=== PATIENT | male | born 1995 | race Caucasian/White ===

== ENCOUNTER 2017-12-06 10:32 | Inpatient (IN) | payer OTHER ==
[2017-12-06] MEDS: morphine 4 MG/ML VIAL IV (11:18)
[2017-12-06] MEDS: KETOROLAC 15 MG INJ IV (11:20)
[2017-12-06 11:41] LABS: ADD MAN DIFF? NO
[2017-12-06 11:44] LABS: BASOPHIL # 0.1 10^3/ul (0.0-0.1); BASOPHILS % 0.5 % (0.0-2.0); EOSINOPHILS % 0.2 % (0.0-7.0); HEMATOCRIT 43.9 % (42.0-52.0); HEMOGLOBIN 15.4 g/dl (14.0-18.0); LYMPHOCYTES # 1.7 10^3/ul (0.8-2.9); LYMPHOCYTES % 16.7 % (15.0-51.0); MEAN CORPUSCULAR HEMOGLOBIN 30.7 pg (29.0-33.0); MEAN CORPUSCULAR HGB CONC 35.1 g/dl (32.0-37.0); MEAN CORPUSCULAR VOLUME 87.5 fl (82.0-101.0); MEAN PLATELET VOLUME 10.1 fl (7.4-10.4); MONOCYTE # 0.6 10^3/ul (0.3-0.9); MONOCYTES % 6.2 % (0.0-11.0); NEUTROPHIL # 7.8 10^3/ul (1.6-7.5); PLATELET COUNT 191 10^3/UL (140-415); RED BLOOD COUNT 5.02 10^6/ul (4.70-6.10); RED CELL DISTRIBUTION WIDTH 12.2 % (11.5-14.5)
[2017-12-06 11:44] LABS: WHITE BLOOD COUNT 10.3 10^3/ul (4.8-10.8)
[2017-12-06 12:18] LABS: ALANINE AMINOTRANSFERASE 15 IU/L (13-69); ALBUMIN 4.5 g/dl (3.3-4.9); ALBUMIN/GLOBULIN RATIO 1.36; ALKALINE PHOSPHATASE 43 IU/L (42-121); ANION GAP 16 (8-16); ASPARTATE AMINO TRANSFERASE 15 IU/L (15-46); BILIRUBIN,INDIRECT 1.5 mg/dl (0-1.1); BILIRUBIN,TOTAL 1.5 mg/dl (0.2-1.3); BLOOD UREA NITROGEN 16 mg/dl (7-20); CALCIUM 9.4 mg/dl (8.4-10.2); CARBON DIOXIDE 30 mmol/L (21-31); CHLORIDE 100 mmol/L (97-110); CREATININE 0.92 mg/dl (0.61-1.24); GLUCOSE 106 mg/dl (70-220); LIPASE 29 U/L (23-300); POTASSIUM 4.2 mmol/L (3.5-5.1); SODIUM 142 mmol/L (135-144); TOTAL PROTEIN 7.8 g/dl (6.1-8.1)
[2017-12-06 12:48] LABS: ERYTHROCYTE SEDIMENTATION RATE 19 mm/Hr (0-15)
[2017-12-06] MEDS: HYDROmorphONE 2 MG/ML SYG IM (14:11)
[2017-12-06] MEDS: SOD CHLORIDE 0.9% 1,000 ML IV ×2 (14:44→18:44)
[2017-12-06] MEDS: ONDANSETRON 4 MG INJ IV (14:44)
[2017-12-06] MEDS ORDERED: ACETAMINOPHEN 325 MG TAB PO ×2 (15:00→18:30)
[2017-12-06] MEDS ORDERED: ONDANSETRON 4 MG INJ IV ×2 (15:00→18:30)
[2017-12-06] MEDS ORDERED: NACL 0.9% 3 ML SYG IV (18:30)
[2017-12-06] MEDS ORDERED: DOCUSATE SODIUM 100 MG CAP PO (18:30)
[2017-12-06] MEDS ORDERED: MAGNESIUM HYDROXIDE 30ML CUP PO (18:30)
[2017-12-06] MEDS ORDERED: HYDROCODONE/APAP (5/325) TAB PO (18:30)
[2017-12-06] MEDS ORDERED: ZOLPIDEM 5 MG TAB PO (18:30)
[2017-12-06] MEDS: morphine 2 MG INJ IV ×2 (18:44→22:29)
[2017-12-07] MEDS: morphine 2 MG INJ IV ×2 (01:25→05:07)
[2017-12-07] MEDS: SOD CHLORIDE 0.9% 1,000 ML IV (03:50)
[2017-12-07 06:00] LABS: ADD MAN DIFF? NO
[2017-12-07 06:16] LABS: BASOPHIL # 0.1 10^3/ul (0.0-0.1); BASOPHILS % 0.7 % (0.0-2.0); EOSINOPHILS # 0.1 10^3/ul (0.0-0.5); EOSINOPHILS % 1.1 % (0.0-7.0); HEMATOCRIT 38.2 % (42.0-52.0); HEMOGLOBIN 13.4 g/dl (14.0-18.0); LYMPHOCYTES # 1.8 10^3/ul (0.8-2.9); LYMPHOCYTES % 20.6 % (15.0-51.0); MEAN CORPUSCULAR HGB CONC 35.1 g/dl (32.0-37.0); MEAN CORPUSCULAR VOLUME 88.4 fl (82.0-101.0); MEAN PLATELET VOLUME 10.3 fl (7.4-10.4); MONOCYTE # 0.6 10^3/ul (0.3-0.9); MONOCYTES % 6.8 % (0.0-11.0); NEUTROPHIL # 6.2 10^3/ul (1.6-7.5); NEUTROPHILS % 70.5 % (39.0-77.0); PLATELET COUNT 167 10^3/UL (140-415); RED BLOOD COUNT 4.32 10^6/ul (4.70-6.10); RED CELL DISTRIBUTION WIDTH 12.1 % (11.5-14.5)
[2017-12-07 06:16] LABS: WHITE BLOOD COUNT 8.7 10^3/ul (4.8-10.8)
[2017-12-07 06:43] LABS: ALANINE AMINOTRANSFERASE 20 IU/L (13-69); ALBUMIN 3.2 g/dl (3.3-4.9); ALBUMIN/GLOBULIN RATIO 1.23; ALKALINE PHOSPHATASE 35 IU/L (42-121); ANION GAP 13 (8-16); ASPARTATE AMINO TRANSFERASE 13 IU/L (15-46); BILIRUBIN,INDIRECT 0.5 mg/dl (0-1.1); BILIRUBIN,TOTAL 0.5 mg/dl (0.2-1.3); BLOOD UREA NITROGEN 13 mg/dl (7-20); CALCIUM 8.4 mg/dl (8.4-10.2); CARBON DIOXIDE 27 mmol/L (21-31); CHLORIDE 109 mmol/L (97-110); CREATININE 0.78 mg/dl (0.61-1.24); GLUCOSE 90 mg/dl (70-220); MAGNESIUM 1.9 mg/dl (1.7-2.5); PHOSPHORUS 3.3 mg/dl (2.5-4.9); POTASSIUM 4.1 mmol/L (3.5-5.1); SODIUM 145 mmol/L (135-144); TOTAL PROTEIN 5.8 g/dl (6.1-8.1)
[2017-12-07] MEDS ORDERED: ENOXAPARIN 40 MG/0.4 ML SYG SC (09:00)
[2017-12-07 09:03] LABS: HEMOGLOBIN A1C 4.8 % (0-5.9)
[2017-12-07] MEDS: HYDROmorphONE 0.5 MG/0.5 ML SYG IV (09:36)
[2017-12-07] MEDS: morphine LIQ (10 MG/5 ML) CUP PO ×2 (15:32→19:41)
[2017-12-08] MEDS: morphine LIQ (10 MG/5 ML) CUP PO ×2 (01:25→07:54)
[2017-12-08] MEDS ORDERED: morphine LIQ (10 MG/5 ML) CUP PO (17:30)
== END 2017-12-08 13:41 | disposition home or self-care (01) | DRG 392 ==
LOC: E/R 10:32 → PP2 14:53
DX: R10.84 Generalized abdominal pain (principal); M04.1 Periodic fever syndromes; E86.0 Dehydration; E80.6 Other disorders of bilirubin metabolism; F17.200 Nicotine dependence, unspecified, uncomplicated
CPT/HCPCS: 36415; 74018; 80053; 83036; 83690; 83735; 84100; 85025; 85651; 86140; 93005; 96372; 96374; 96375; 99285-25

== ENCOUNTER 2018-02-11 13:17 | Emergency (ER) | payer OTHER ==
[2018-02-11] MEDS: morphine 4 MG/ML VIAL IV (14:46)
[2018-02-11] MEDS: SOD CHLORIDE 0.9% 1,000 ML IV (14:46)
[2018-02-11] MEDS: ONDANSETRON 4 MG INJ IV (14:46)
[2018-02-11 15:11] LABS: ADD MAN DIFF? NO
[2018-02-11 15:13] LABS: WHITE BLOOD COUNT 5.5 10^3/ul (4.8-10.8)
[2018-02-11 15:13] LABS: BASOPHIL # 0.1 10^3/ul (0.0-0.1); BASOPHILS % 1.3 % (0.0-2.0); EOSINOPHILS % 0.7 % (0.0-7.0); HEMATOCRIT 44.6 % (42.0-52.0); HEMOGLOBIN 15.8 g/dl (14.0-18.0); LYMPHOCYTES # 1.6 10^3/ul (0.8-2.9); LYMPHOCYTES % 29.5 % (15.0-51.0); MEAN CORPUSCULAR HEMOGLOBIN 31.3 pg (29.0-33.0); MEAN CORPUSCULAR HGB CONC 35.4 g/dl (32.0-37.0); MEAN CORPUSCULAR VOLUME 88.3 fl (82.0-101.0); MEAN PLATELET VOLUME 9.6 fl (7.4-10.4); MONOCYTE # 0.4 10^3/ul (0.3-0.9); MONOCYTES % 6.5 % (0.0-11.0); NEUTROPHIL # 3.4 10^3/ul (1.6-7.5); NEUTROPHILS % 61.8 % (39.0-77.0); PLATELET COUNT 183 10^3/UL (140-415); RED BLOOD COUNT 5.05 10^6/ul (4.70-6.10); RED CELL DISTRIBUTION WIDTH 12.2 % (11.5-14.5)
[2018-02-11 15:44] LABS: ALANINE AMINOTRANSFERASE 15 IU/L (13-69); ALBUMIN 4.3 g/dl (3.3-4.9); ALBUMIN/GLOBULIN RATIO 1.53; ALKALINE PHOSPHATASE 28 IU/L (42-121); ANION GAP 11 (8-16); ASPARTATE AMINO TRANSFERASE 14 IU/L (15-46); BILIRUBIN,INDIRECT 0.7 mg/dl (0-1.1); BILIRUBIN,TOTAL 0.7 mg/dl (0.2-1.3); BLOOD UREA NITROGEN 16 mg/dl (7-20); CALCIUM 9.7 mg/dl (8.4-10.2); CARBON DIOXIDE 29 mmol/L (21-31); CHLORIDE 105 mmol/L (97-110); CREATININE 0.93 mg/dl (0.61-1.24); GLUCOSE 96 mg/dl (70-220); LIPASE 40 U/L (23-300); POTASSIUM 4.4 mmol/L (3.5-5.1); SODIUM 141 mmol/L (135-144); TOTAL PROTEIN 7.1 g/dl (6.1-8.1)
[2018-02-11 15:45] LABS: C-REACTIVE PROTEIN < 0.5 mg/dl (0.0-0.9)
[2018-02-11 16:29] LABS: ERYTHROCYTE SEDIMENTATION RATE 1 mm/Hr (0-15)
[2018-02-11 17:30] LABS: ADD UMIC NO; UR ASCORBIC ACID NEGATIVE (NEGATIVE); UR BILIRUBIN (Dip) NEGATIVE (NEGATIVE); UR BLOOD (Dip) NEGATIVE (NEGATIVE); UR CLARITY CLEAR (CLEAR); UR COLOR YELLOW (YELLOW); UR GLUCOSE (Dip) NEGATIVE (NEGATIVE); UR KETONES (Dip) NEGATIVE (NEGATIVE); UR LEUKOCYTE ESTERASE (Dip) NEGATIVE Leu/ul (NEGATIVE); UR NITRITE (Dip) NEGATIVE (NEGATIVE); UR SPECIFIC GRAVITY (Dip) 1.024 (1.003-1.030); UR TOTAL PROTEIN (Dip) NEGATIVE (NEGATIVE); UR UROBILINOGEN (Dip) NEGATIVE (NEGATIVE)
== END 2018-02-11 18:03 | disposition home or self-care (01) ==
LOC: FTE 13:17
DX: R10.9 Unspecified abdominal pain (principal); F17.210 Nicotine dependence, cigarettes, uncomplicated
CPT/HCPCS: 36415; 80053; 81003; 83690; 85025; 85651; 86140; 96374; 96375; 99284-25

== ENCOUNTER 2018-02-21 22:34 | Emergency (ER) | payer OTHER ==
[2018-02-21 23:19] LABS: ADD MAN DIFF? NO
[2018-02-21 23:24] LABS: BASOPHIL # 0.1 10^3/ul (0.0-0.1); BASOPHILS % 0.8 % (0.0-2.0); EOSINOPHILS # 0.1 10^3/ul (0.0-0.5); EOSINOPHILS % 1.3 % (0.0-7.0); HEMATOCRIT 43.9 % (42.0-52.0); HEMOGLOBIN 15.6 g/dl (14.0-18.0); IMMATURE GRANS #M 0.02 10^3/ul; IMMATURE GRANS % (M) 0.2 %; LYMPHOCYTES # 1.9 10^3/ul (0.8-2.9); LYMPHOCYTES % 20.7 % (15.0-51.0); MEAN CORPUSCULAR HEMOGLOBIN 30.8 pg (29.0-33.0); MEAN CORPUSCULAR HGB CONC 35.5 g/dl (32.0-37.0); MEAN CORPUSCULAR VOLUME 86.8 fl (82.0-101.0); MEAN PLATELET VOLUME 9.7 fl (7.4-10.4); MONOCYTE # 0.6 10^3/ul (0.3-0.9); MONOCYTES % 6.1 % (0.0-11.0); NEUTROPHIL # 6.5 10^3/ul (1.6-7.5); NEUTROPHILS % 70.9 % (39.0-77.0); PLATELET COUNT 201 10^3/UL (140-415); RED BLOOD COUNT 5.06 10^6/ul (4.70-6.10); RED CELL DISTRIBUTION WIDTH 11.9 % (11.5-14.5)
[2018-02-21 23:24] LABS: WHITE BLOOD COUNT 9.2 10^3/ul (4.8-10.8)
[2018-02-21 23:34] LABS: ADD UMIC NO; UR ASCORBIC ACID NEGATIVE (NEGATIVE); UR BILIRUBIN (Dip) NEGATIVE (NEGATIVE); UR BLOOD (Dip) NEGATIVE (NEGATIVE); UR CLARITY CLEAR (CLEAR); UR COLOR YELLOW (YELLOW); UR GLUCOSE (Dip) NEGATIVE (NEGATIVE); UR KETONES (Dip) NEGATIVE (NEGATIVE); UR LEUKOCYTE ESTERASE (Dip) NEGATIVE Leu/ul (NEGATIVE); UR NITRITE (Dip) NEGATIVE (NEGATIVE); UR SPECIFIC GRAVITY (Dip) 1.021 (1.003-1.030); UR TOTAL PROTEIN (Dip) NEGATIVE (NEGATIVE); UR UROBILINOGEN (Dip) NEGATIVE (NEGATIVE)
[2018-02-21 23:44] LABS: ALANINE AMINOTRANSFERASE 18 IU/L (13-69); ALBUMIN 4.2 g/dl (3.3-4.9); ALBUMIN/GLOBULIN RATIO 1.35; ALKALINE PHOSPHATASE 33 IU/L (42-121); ANION GAP 13 (8-16); ASPARTATE AMINO TRANSFERASE 19 IU/L (15-46); BILIRUBIN,INDIRECT 0.5 mg/dl (0-1.1); BILIRUBIN,TOTAL 0.5 mg/dl (0.2-1.3); BLOOD UREA NITROGEN 14 mg/dl (7-20); CALCIUM 9.3 mg/dl (8.4-10.2); CARBON DIOXIDE 29 mmol/L (21-31); CHLORIDE 105 mmol/L (97-110); CREATININE 0.81 mg/dl (0.61-1.24); GLUCOSE 86 mg/dl (70-220); LIPASE 68 U/L (23-300); SODIUM 143 mmol/L (135-144); TOTAL PROTEIN 7.3 g/dl (6.1-8.1)
[2018-02-21] MEDS: morphine 4 MG/ML VIAL IM (23:56)
== END 2018-02-22 01:12 | disposition home or self-care (01) ==
LOC: FTE 22:34
DX: K59.00 Constipation, unspecified (principal); F17.210 Nicotine dependence, cigarettes, uncomplicated
CPT/HCPCS: 36415; 74176; 80053; 81003; 83690; 85025; 96372; 99285-25

== ENCOUNTER 2018-02-23 08:53 | Inpatient (IN) | payer OTHER ==
[2018-02-23 09:48] LABS: ADD MAN DIFF? NO
[2018-02-23] MEDS: KETOROLAC 30 MG INJ IV ×2 (09:48→10:37)
[2018-02-23] MEDS: SOD CHLORIDE 0.9% 1,000 ML IV ×2 (09:49→13:48)
[2018-02-23 09:54] LABS: WHITE BLOOD COUNT 11.2 10^3/ul (4.8-10.8)
[2018-02-23 09:54] LABS: BASOPHILS % 0.4 % (0.0-2.0); EOSINOPHILS % 0.4 % (0.0-7.0); HEMATOCRIT 40.5 % (42.0-52.0); HEMOGLOBIN 14.4 g/dl (14.0-18.0); IMMATURE GRANS #M 0.04 10^3/ul; IMMATURE GRANS % (M) 0.4 %; LYMPHOCYTES # 1.3 10^3/ul (0.8-2.9); MEAN CORPUSCULAR HEMOGLOBIN 30.3 pg (29.0-33.0); MEAN CORPUSCULAR HGB CONC 35.6 g/dl (32.0-37.0); MEAN CORPUSCULAR VOLUME 85.3 fl (82.0-101.0); MEAN PLATELET VOLUME 9.5 fl (7.4-10.4); MONOCYTE # 0.6 10^3/ul (0.3-0.9); MONOCYTES % 4.9 % (0.0-11.0); NEUTROPHIL # 9.2 10^3/ul (1.6-7.5); NEUTROPHILS % 81.9 % (39.0-77.0); PLATELET COUNT 159 10^3/UL (140-415); RED BLOOD COUNT 4.75 10^6/ul (4.70-6.10); RED CELL DISTRIBUTION WIDTH 12.1 % (11.5-14.5)
[2018-02-23 10:13] LABS: ALANINE AMINOTRANSFERASE 16 IU/L (13-69); ALBUMIN 3.7 g/dl (3.3-4.9); ALBUMIN/GLOBULIN RATIO 1.19; ALKALINE PHOSPHATASE 37 IU/L (42-121); ANION GAP 11 (8-16); ASPARTATE AMINO TRANSFERASE 15 IU/L (15-46); BILIRUBIN,INDIRECT 1.3 mg/dl (0-1.1); BILIRUBIN,TOTAL 1.3 mg/dl (0.2-1.3); BLOOD UREA NITROGEN 12 mg/dl (7-20); CALCIUM 8.8 mg/dl (8.4-10.2); CARBON DIOXIDE 27 mmol/L (21-31); CHLORIDE 104 mmol/L (97-110); CREATININE 0.78 mg/dl (0.61-1.24); GLUCOSE 108 mg/dl (70-220); LIPASE 15 U/L (23-300); SODIUM 138 mmol/L (135-144); TOTAL PROTEIN 6.8 g/dl (6.1-8.1)
[2018-02-23 10:36] LABS: ADD UMIC YES; UR ASCORBIC ACID NEGATIVE (NEGATIVE); UR BILIRUBIN (Dip) NEGATIVE (NEGATIVE); UR BLOOD (Dip) NEGATIVE (NEGATIVE); UR CLARITY CLEAR (CLEAR); UR COLOR YELLOW (YELLOW); UR GLUCOSE (Dip) NEGATIVE (NEGATIVE); UR KETONES (Dip) TRACE mg/dL (NEGATIVE); UR LEUKOCYTE ESTERASE (Dip) NEGATIVE Leu/ul (NEGATIVE); UR MUCUS MANY /HPF (NONE SEEN); UR NITRITE (Dip) NEGATIVE (NEGATIVE); UR RBC 3 /HPF (0-5); UR SPECIFIC GRAVITY (Dip) 1.033 (1.003-1.030); UR TOTAL PROTEIN (Dip) 2+ mg/dl (NEGATIVE); UR UROBILINOGEN (Dip) NEGATIVE (NEGATIVE); UR WBC 4 /HPF (0-5)
[2018-02-23] MEDS ORDERED: ACETAMINOPHEN 325 MG TAB PO ×2 (11:00→13:30)
[2018-02-23] MEDS ORDERED: ONDANSETRON 4 MG INJ IV (11:00)
[2018-02-23] MEDS ORDERED: POTASSIUM CHLORIDE 10 MEQ in SOD CHLORIDE 0.9% 1,000 ML IV (13:00)
[2018-02-23] MEDS ORDERED: NACL 0.9% 3 ML SYG IV (13:30)
[2018-02-23] MEDS ORDERED: BISACODYL 10 MG SUPP PR (13:30)
[2018-02-23] MEDS ORDERED: ACETAMINOPHEN 650 MG SUPP PR (13:30)
[2018-02-23] MEDS: HYDROmorphONE 2 MG/ML SYG IV ×2 (13:46→20:44)
[2018-02-23] MEDS: ONDANSETRON 4 MG INJ IV ×2 (13:46→20:43)
[2018-02-24] MEDS: HYDROmorphONE 2 MG/ML SYG IV ×5 (01:00→20:41)
[2018-02-24] MEDS: ONDANSETRON 4 MG INJ IV ×4 (02:32→18:08)
[2018-02-24 05:48] LABS: ADD MAN DIFF? NO
[2018-02-24 05:58] LABS: BASOPHIL # 0.1 10^3/ul (0.0-0.1); BASOPHILS % 0.6 % (0.0-2.0); EOSINOPHILS # 0.3 10^3/ul (0.0-0.5); EOSINOPHILS % 3.3 % (0.0-7.0); HEMATOCRIT 37.9 % (42.0-52.0); HEMOGLOBIN 13.3 g/dl (14.0-18.0); IMMATURE GRANS #M 0.03 10^3/ul; IMMATURE GRANS % (M) 0.4 %; LYMPHOCYTES # 1.7 10^3/ul (0.8-2.9); LYMPHOCYTES % 21.3 % (15.0-51.0); MEAN CORPUSCULAR HEMOGLOBIN 30.2 pg (29.0-33.0); MEAN CORPUSCULAR HGB CONC 35.1 g/dl (32.0-37.0); MEAN CORPUSCULAR VOLUME 86.1 fl (82.0-101.0); MONOCYTE # 0.5 10^3/ul (0.3-0.9); MONOCYTES % 6.4 % (0.0-11.0); NEUTROPHIL # 5.5 10^3/ul (1.6-7.5); PLATELET COUNT 164 10^3/UL (140-415); RED CELL DISTRIBUTION WIDTH 11.9 % (11.5-14.5)
[2018-02-24 05:58] LABS: WHITE BLOOD COUNT 8.1 10^3/ul (4.8-10.8)
[2018-02-24] MEDS: SOD CHLORIDE 0.9% 1,000 ML IV ×3 (06:01→23:52)
[2018-02-24] MEDS: PANTOPRAZOLE 40 MG INJ IV (06:02)
[2018-02-24 06:34] LABS: ALANINE AMINOTRANSFERASE 20 IU/L (13-69); ALBUMIN 2.9 g/dl (3.3-4.9); ALKALINE PHOSPHATASE 36 IU/L (42-121); ANION GAP 11 (8-16); ASPARTATE AMINO TRANSFERASE 15 IU/L (15-46); BILIRUBIN,INDIRECT 0.6 mg/dl (0-1.1); BILIRUBIN,TOTAL 0.6 mg/dl (0.2-1.3); BLOOD UREA NITROGEN 12 mg/dl (7-20); CALCIUM 8.6 mg/dl (8.4-10.2); CARBON DIOXIDE 27 mmol/L (21-31); CHLORIDE 105 mmol/L (97-110); CHOL/HDL RATIO 2.3 RATIO; CHOLESTEROL 68 mg/dl (100-200); CREATININE 0.81 mg/dl (0.61-1.24); GLUCOSE 86 mg/dl (70-220); HDL CHOLESTEROL 29 mg/dl (30-63); LDL CHOLESTEROL,CALCULATED 27 mg/dl; MAGNESIUM 1.8 mg/dl (1.7-2.5); PHOSPHORUS 3.3 mg/dl (2.5-4.9); POTASSIUM 4.1 mmol/L (3.5-5.1); SODIUM 139 mmol/L (135-144); TOTAL PROTEIN 5.3 g/dl (6.1-8.1); TRIGLYCERIDES 60 mg/dl (0-149)
[2018-02-24 06:35] LABS: FREE THYROXINE INDEX (Calc) 3.06 ug/ml (0.65-3.89); T3 UPTAKE 40.2 % (23.5-40.5); T4 (THYROXINE) 7.6 ug/dl (5.5-11.0)
[2018-02-24 07:51] LABS: HEMOGLOBIN A1C 4.9 % (0-5.9)
[2018-02-24] MEDS: POLYETHYLENE GLYCOL 17 GM PACKET PO (09:47)
[2018-02-24] MEDS: MAGNESIUM HYDROXIDE 30ML CUP PO (18:40)
[2018-02-24] MEDS: SENNA/DOCUSATE NA (8.6MG/50MG) TAB PO (18:41)
[2018-02-25] MEDS: HYDROmorphONE 1 MG/ML SYG IV ×6 (01:21→22:59)
[2018-02-25] MEDS: DOCUSATE SODIUM 100 MG CAP PO (05:15)
[2018-02-25] MEDS: PANTOPRAZOLE 40 MG INJ IV (05:16)
[2018-02-25] MEDS: POLYETHYLENE GLYCOL 17 GM PACKET PO (09:23)
[2018-02-25] MEDS: ONDANSETRON 4 MG INJ IV ×2 (09:32→22:52)
[2018-02-25] MEDS: BUSPIRONE 5 MG TAB PO ×2 (12:47→20:44)
[2018-02-25] MEDS: CALCIUM CARBONATE 750 MG CHEW TAB PO (12:57)
[2018-02-25] MEDS: COLCHICINE 0.6 MG TAB PO ×2 (17:25→22:52)
[2018-02-25] MEDS: MAGNESIUM HYDROXIDE 30ML CUP PO (20:40)
[2018-02-25] MEDS ORDERED: COLCHICINE 0.6 MG TAB PO ×2 (21:00)
[2018-02-26] MEDS: CALCIUM CARBONATE 750 MG CHEW TAB PO (01:31)
[2018-02-26] MEDS: SOD CHLORIDE 0.9% 1,000 ML IV (03:42)
[2018-02-26] MEDS: HYDROmorphONE 1 MG/ML SYG IV ×3 (03:45→11:36)
[2018-02-26] MEDS: PANTOPRAZOLE 40 MG INJ IV (06:43)
[2018-02-26] MEDS: POLYETHYLENE GLYCOL 17 GM PACKET PO (08:21)
[2018-02-26] MEDS: COLCHICINE 0.6 MG TAB PO (08:22)
[2018-02-26] MEDS: BUSPIRONE 5 MG TAB PO (08:22)
== END 2018-02-26 14:15 | disposition home or self-care (01) | DRG 547 ==
LOC: MS1 02-24 12:02 → E/R 08:53 → MS3 10:41
DX: M04.1 Periodic fever syndromes (principal); F17.210 Nicotine dependence, cigarettes, uncomplicated; F41.9 Anxiety disorder, unspecified; D72.829 Elevated white blood cell count, unspecified
CPT/HCPCS: 36415; 80053; 80061; 81001; 83036; 83690; 83735; 84100; 84436; 84443; 84479; 85025; 96374; 96375; 99217; 99285-25

== ENCOUNTER 2018-03-02 21:14 | Emergency (ER) | payer SELFPAY, OTHER | END 2018-03-03 00:20 | disposition left against medical advice (07) | LOC: FTE 21:14 | DX: Z53.21 Procedure and treatment not carried out due to patient leaving prior to being seen by health care provider (principal) ==

== ENCOUNTER 2018-09-05 12:17 | Emergency (ER) | payer OTHER ==
[2018-09-05] MEDS: ONDANSETRON 4 MG INJ IV ×2 (13:10→15:23)
[2018-09-05] MEDS: SOD CHLORIDE 0.9% 1,000 ML IV (13:10)
[2018-09-05] MEDS: HYDROmorphONE 1 MG/ML SYG IV ×2 (13:11→15:23)
[2018-09-05 13:16] LABS: ADD MAN DIFF? NO
[2018-09-05 13:17] LABS: BASOPHIL # 0.1 10^3/ul (0.0-0.1); BASOPHILS % 0.6 % (0.0-2.0); EOSINOPHILS # 0.1 10^3/ul (0.0-0.5); EOSINOPHILS % 0.7 % (0.0-7.0); HEMATOCRIT 42.5 % (42.0-52.0); HEMOGLOBIN 14.6 g/dl (14.0-18.0); LYMPHOCYTES # 1.2 10^3/ul (0.8-2.9); MEAN CORPUSCULAR HEMOGLOBIN 30.3 pg (29.0-33.0); MEAN CORPUSCULAR HGB CONC 34.4 g/dl (32.0-37.0); MEAN CORPUSCULAR VOLUME 88.2 fl (82.0-101.0); MEAN PLATELET VOLUME 9.5 fl (7.4-10.4); MONOCYTE # 0.7 10^3/ul (0.3-0.9); MONOCYTES % 6.8 % (0.0-11.0); NEUTROPHIL # 8.4 10^3/ul (1.6-7.5); NEUTROPHILS % 80.5 % (39.0-77.0); PLATELET COUNT 194 10^3/UL (140-415); RED BLOOD COUNT 4.82 10^6/ul (4.70-6.10)
[2018-09-05 13:17] LABS: WHITE BLOOD COUNT 10.4 10^3/ul (4.8-10.8)
[2018-09-05 13:43] LABS: ALANINE AMINOTRANSFERASE 10 IU/L (13-69); ALBUMIN 4.3 g/dl (3.3-4.9); ALBUMIN/GLOBULIN RATIO 1.26; ALKALINE PHOSPHATASE 37 IU/L (42-121); ANION GAP 11 (5-13); ASPARTATE AMINO TRANSFERASE 26 IU/L (15-46); BILIRUBIN,INDIRECT 0.9 mg/dl (0-1.1); BILIRUBIN,TOTAL 0.9 mg/dl (0.2-1.3); BLOOD UREA NITROGEN 12 mg/dl (7-20); CALCIUM 9.6 mg/dl (8.4-10.2); CARBON DIOXIDE 24 mmol/L (21-31); CHLORIDE 105 mmol/L (97-110); CREATININE 0.79 mg/dl (0.61-1.24); Estimated GFR > 60 mL/min (>60); GLUCOSE 104 mg/dl (70-220); LIPASE 18 U/L (23-300); POTASSIUM 4.4 mmol/L (3.5-5.1); SODIUM 140 mmol/L (135-144); TOTAL PROTEIN 7.7 g/dl (6.1-8.1)
[2018-09-05] MEDS: IOHEXOL 300MG/ML 150 ML BTL (14:52)
[2018-09-05] MEDS: SOD CHLORIDE 0.9% 100 ML (14:52)
== END 2018-09-05 15:38 | disposition home or self-care (01) ==
LOC: FTE 12:17
DX: R10.84 Generalized abdominal pain (principal); F17.210 Nicotine dependence, cigarettes, uncomplicated
CPT/HCPCS: 36415; 74177; 80053; 83690; 85025; 87400; 96374; 96375; 96376; 99285-25

== ENCOUNTER 2019-01-08 17:36 | Emergency (ER) | payer OTHER ==
[2019-01-08] MEDS: ONDANSETRON 4 MG INJ IV (18:03)
[2019-01-08] MEDS: SOD CHLORIDE 0.9% 1,000 ML IV ×2 (18:03→19:13)
[2019-01-08] MEDS: HYDROmorphONE 1 MG/ML SYG IV (18:03)
[2019-01-08] MEDS: FAMOTIDINE 20 MG INJ IV (18:03)
[2019-01-08 18:12] LABS: ADD MAN DIFF? NO
[2019-01-08 18:14] LABS: BASOPHIL # 0.1 10^3/ul (0.0-0.1); BASOPHILS % 0.5 % (0.0-2.0); EOSINOPHILS % 0.1 % (0.0-7.0); HEMOGLOBIN 15.5 g/dl (14.0-18.0); LYMPHOCYTES # 1.7 10^3/ul (0.8-2.9); MEAN CORPUSCULAR HEMOGLOBIN 30.1 pg (29.0-33.0); MEAN CORPUSCULAR HGB CONC 35.2 g/dl (32.0-37.0); MEAN CORPUSCULAR VOLUME 85.4 fl (82.0-101.0); MEAN PLATELET VOLUME 9.7 fl (7.4-10.4); MONOCYTE # 0.6 10^3/ul (0.3-0.9); MONOCYTES % 4.4 % (0.0-11.0); NEUTROPHIL # 10.6 10^3/ul (1.6-7.5); NEUTROPHILS % 81.6 % (39.0-77.0); PLATELET COUNT 212 10^3/UL (140-415); RED BLOOD COUNT 5.15 10^6/ul (4.70-6.10); RED CELL DISTRIBUTION WIDTH 11.9 % (11.5-14.5)
[2019-01-08 18:19] LABS: ADD UMIC YES; UR ASCORBIC ACID NEGATIVE (NEGATIVE); UR BILIRUBIN (Dip) NEGATIVE (NEGATIVE); UR BLOOD (Dip) NEGATIVE (NEGATIVE); UR CLARITY CLOUDY (CLEAR); UR COLOR AMBER (YELLOW); UR GLUCOSE (Dip) NEGATIVE (NEGATIVE); UR KETONES (Dip) TRACE mg/dL (NEGATIVE); UR LEUKOCYTE ESTERASE (Dip) NEGATIVE Leu/ul (NEGATIVE); UR MUCUS MANY /HPF (NONE SEEN); UR NITRITE (Dip) NEGATIVE (NEGATIVE); UR RBC 6 /HPF (0-5); UR SPECIFIC GRAVITY (Dip) 1.033 (1.003-1.030); UR TOTAL PROTEIN (Dip) 1+ mg/dl (NEGATIVE); UR UROBILINOGEN (Dip) 1+ mg/dL (NEGATIVE); UR WBC 6 /HPF (0-5)
[2019-01-08 18:48] LABS: ALANINE AMINOTRANSFERASE 14 IU/L (13-69); ALBUMIN 4.4 g/dl (3.3-4.9); ALBUMIN/GLOBULIN RATIO 1.33; ALKALINE PHOSPHATASE 39 IU/L (42-121); ANION GAP 9 (5-13); ASPARTATE AMINO TRANSFERASE 15 IU/L (15-46); BILIRUBIN,INDIRECT 1.2 mg/dl (0-1.1); BILIRUBIN,TOTAL 1.2 mg/dl (0.2-1.3); BLOOD UREA NITROGEN 14 mg/dl (7-20); CALCIUM 9.4 mg/dl (8.4-10.2); CARBON DIOXIDE 28 mmol/L (21-31); CHLORIDE 103 mmol/L (97-110); Estimated GFR > 60 mL/min (>60); GLUCOSE 125 mg/dl (70-220); LIPASE 25 U/L (23-300); POTASSIUM 4.3 mmol/L (3.5-5.1); SODIUM 140 mmol/L (135-144); TOTAL PROTEIN 7.7 g/dl (6.1-8.1)
[2019-01-08] MEDS: KETOROLAC 30 MG INJ IV (19:13)
[2019-01-08] MEDS: HYDROmorphONE 0.5 MG/0.5 ML SYG IV (19:13)
== END 2019-01-08 20:25 | disposition home or self-care (01) ==
LOC: FTE 17:36
DX: R10.84 Generalized abdominal pain (principal); F17.210 Nicotine dependence, cigarettes, uncomplicated
CPT/HCPCS: 36415; 80053; 81001; 83690; 85025; 96374; 96375; 96376; 99284-25

== ENCOUNTER 2019-01-09 14:55 | Emergency (ER) | payer OTHER ==
[2019-01-09] MEDS: METOCLOPRAMIDE 10 MG INJ IV (16:44)
[2019-01-09 16:45] LABS: ADD MAN DIFF? NO
[2019-01-09] MEDS: HYDROmorphONE 1 MG/ML SYG IV (16:45)
[2019-01-09] MEDS: FAMOTIDINE 20 MG INJ IV (16:45)
[2019-01-09] MEDS: KETOROLAC 30 MG INJ IV (16:45)
[2019-01-09] MEDS: DIPHENHYDRAMINE 50 MG INJ IV ×2 (16:45→17:35)
[2019-01-09] MEDS: LACTATED RINGER'S 1,000 ML IV (16:46)
[2019-01-09 16:50] LABS: WHITE BLOOD COUNT 7.9 10^3/ul (4.8-10.8)
[2019-01-09 16:50] LABS: BASOPHIL # 0.1 10^3/ul (0.0-0.1); BASOPHILS % 0.8 % (0.0-2.0); EOSINOPHILS # 0.1 10^3/ul (0.0-0.5); HEMATOCRIT 42.3 % (42.0-52.0); LYMPHOCYTES # 1.3 10^3/ul (0.8-2.9); LYMPHOCYTES % 15.9 % (15.0-51.0); MEAN CORPUSCULAR HEMOGLOBIN 30.5 pg (29.0-33.0); MEAN CORPUSCULAR HGB CONC 35.5 g/dl (32.0-37.0); MEAN PLATELET VOLUME 9.7 fl (7.4-10.4); MONOCYTE # 0.5 10^3/ul (0.3-0.9); MONOCYTES % 5.9 % (0.0-11.0); NEUTROPHILS % 76.3 % (39.0-77.0); PLATELET COUNT 164 10^3/UL (140-415); RED BLOOD COUNT 4.92 10^6/ul (4.70-6.10); RED CELL DISTRIBUTION WIDTH 11.8 % (11.5-14.5)
[2019-01-09 16:57] LABS: ADD UMIC NO; UR ASCORBIC ACID NEGATIVE (NEGATIVE); UR BILIRUBIN (Dip) NEGATIVE (NEGATIVE); UR BLOOD (Dip) NEGATIVE (NEGATIVE); UR CLARITY SLIGHTLY CLOUDY (CLEAR); UR COLOR YELLOW (YELLOW); UR GLUCOSE (Dip) NEGATIVE (NEGATIVE); UR KETONES (Dip) 2+ mg/dL (NEGATIVE); UR LEUKOCYTE ESTERASE (Dip) NEGATIVE Leu/ul (NEGATIVE); UR MUCUS MANY /HPF (NONE SEEN); UR NITRITE (Dip) NEGATIVE (NEGATIVE); UR RBC 4 /HPF (0-5); UR SPECIFIC GRAVITY (Dip) 1.027 (1.003-1.030); UR TOTAL PROTEIN (Dip) NEGATIVE (NEGATIVE); UR UROBILINOGEN (Dip) 1+ mg/dL (NEGATIVE); UR WBC 6 /HPF (0-5)
[2019-01-09 17:07] LABS: ALANINE AMINOTRANSFERASE 10 IU/L (13-69); ALBUMIN 4.2 g/dl (3.3-4.9); ALKALINE PHOSPHATASE 44 IU/L (42-121); ANION GAP 11 (5-13); ASPARTATE AMINO TRANSFERASE 15 IU/L (15-46); BLOOD UREA NITROGEN 12 mg/dl (7-20); CALCIUM 9.2 mg/dl (8.4-10.2); CARBON DIOXIDE 28 mmol/L (21-31); CHLORIDE 103 mmol/L (97-110); CREATININE 0.98 mg/dl (0.61-1.24); Estimated GFR > 60 mL/min (>60); GLUCOSE 87 mg/dl (70-220); LIPASE 19 U/L (23-300); POTASSIUM 4.2 mmol/L (3.5-5.1); SODIUM 142 mmol/L (135-144); TOTAL PROTEIN 7.7 g/dl (6.1-8.1)
[2019-01-09] MEDS: METHYLPREDNISOLONE 125 MG INJ IV (17:35)
[2019-01-09] MEDS: HYDROmorphONE 2 MG/ML SYG IV (18:14)
[2019-01-09] MEDS: ONDANSETRON (ODT) 4 MG TAB ODT (19:21)
[2019-01-09] MEDS: HYDROCODONE/APAP (10/325) TAB PO (19:21)
== END 2019-01-09 19:57 | disposition home or self-care (01) ==
LOC: FTE 14:55
DX: M04.1 Periodic fever syndromes (principal); F17.210 Nicotine dependence, cigarettes, uncomplicated; R82.71 Bacteriuria; R10.9 Unspecified abdominal pain
CPT/HCPCS: 36415; 80053; 81001; 81003; 83690; 85025; 96374; 96375; 96376; 99284-25

== ENCOUNTER 2019-02-07 13:16 | Emergency (ER) | payer OTHER ==
[2019-02-07] MEDS: DEXAMETHASONE 10 MG/ML 1 ML INJ IM (13:38)
== END 2019-02-07 13:47 | disposition home or self-care (01) ==
LOC: FTE 13:16
DX: J02.9 Acute pharyngitis, unspecified (principal); Z87.891 Personal history of nicotine dependence
CPT/HCPCS: 96372; 99284-25